=== PATIENT | female | born 1970 | race Caucasian/White ===

== ENCOUNTER 2018-12-02 19:04 | Emergency (ER) | payer MEDICAID | END 2018-12-02 20:21 | disposition home or self-care (01) | LOC: E/R 19:04 | DX: H66.92 Otitis media, unspecified, left ear (principal); E11.9 Type 2 diabetes mellitus without complications; Z79.4 Long term (current) use of insulin | CPT/HCPCS: 99283; Z7502 ==

== ENCOUNTER 2018-12-06 13:42 | Emergency (ER) | payer MEDICAID | END 2018-12-06 16:09 | disposition home or self-care (01) | LOC: FTE 13:42 | DX: H70.92 Unspecified mastoiditis, left ear (principal); E11.9 Type 2 diabetes mellitus without complications; H66.92 Otitis media, unspecified, left ear; Z79.4 Long term (current) use of insulin | CPT/HCPCS: 99283 ==